=== PATIENT | male | born 1985 | race Two or more races ===

== ENCOUNTER 2021-04-17 23:43 | Emergency (ER) | payer OTHER ==
[~2021-04-17] VITALS: Ht 170.2 cm; Wt 104.2 kg
[2021-04-18] MEDS ORDERED: PROPARACAINE OPHTH 0.5%, 15ML ONE (00:23)
[2021-04-18] MEDS ORDERED: FLUORESCEIN OPHTHALMIC 1 MG STRIP ONE (00:23)
[2021-04-18] MEDS ORDERED: FLUORESCEIN OPHTHALMIC 1 MG STRIP EACHEYE ONE (00:30)
[2021-04-18] MEDS ORDERED: PROPARACAINE OPHTH 0.5%, 15ML EACHEYE ONE (00:30)
[2021-04-18 01:10] VITALS: BP 138/84
== END 2021-04-18 02:39 | disposition home or self-care (01) ==
LOC: ED 04-18 00:13
DX: S02.31XA Fracture of orbital floor, right side, initial encounter for closed fracture (principal); F17.210 Nicotine dependence, cigarettes, uncomplicated; X58.XXXA Exposure to other specified factors, initial encounter; Y93.89 Activity, other specified; Y92.89 Other specified places as the place of occurrence of the external cause; Y99.8 Other external cause status
CPT/HCPCS: 99283; 99406